=== PATIENT | male | born 2005 | race Caucasian/White ===

== ENCOUNTER 2024-07-05 13:13 | Emergency (ER) | payer OTHER, BC, SELFPAY ==
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
[2024-07-05 13:14] VITALS: BP 138/72; PULSE 98; RESP 16; TEMP 36.9; O2SAT 100
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
[2024-07-05] MEDS: ACETAMINOPHEN 500 MG TABLET 1000 MG PO (15:30)
[2024-07-05 17:17] VITALS: BP 126/90; PULSE 83; RESP 13; TEMP 36.8; O2SAT 100
== END 2024-07-05 17:20 | disposition home or self-care (01) ==
PROVIDERS: Emergency Provider Physician Assistant
DX: S00.81XA Abrasion of other part of head, initial encounter (principal); S80.12XA Contusion of left lower leg, initial encounter; V47.0XXA Car driver injured in collision with fixed or stationary object in nontraffic accident, initial encounter; W22.10XA Striking against or struck by unspecified automobile airbag, initial encounter
CPT/HCPCS: 70450; 71260; 72125; 73590; 74177; 99284; A9270; Q9967